=== PATIENT | male | born 1985 | race Caucasian/White ===

== ENCOUNTER 2016-03-28 22:27 | Emergency (ER) | payer BC, OTHER ==
[~2016-03-28 22:27] MED LIST: NO CURRENT MEDS
== END 2016-03-29 00:42 | disposition left against medical advice (07) ==
LOC: ER 22:28
DX: Z53.21 Procedure and treatment not carried out due to patient leaving prior to being seen by health care provider (principal)
CPT/HCPCS: A4606; Z7610

== ENCOUNTER 2021-10-04 10:54 | Emergency (ER) | payer MEDICAID ==
[~2021-10-04] VITALS: Ht 185.4 cm; Wt 117.9 kg
[2021-10-04 11:08] VITALS: BP 161/109
[2021-10-04] MEDS ORDERED: TYL2T PO (11:30)
[2021-10-04] MEDS ORDERED: AMOX875T2 PO (11:30)
--- NOTE | 2021-10-04 11:35 | NUR ---
Patient discharged to home in stable condition. Written and verbal after care instructions given. Patient verbalizes understanding of instruction.
== END 2021-10-04 11:35 | disposition home or self-care (01) ==
LOC: ER 10:59
DX: H66.91 Otitis media, unspecified, right ear (principal); I10 Essential (primary) hypertension; E11.9 Type 2 diabetes mellitus without complications; M10.9 Gout, unspecified; Z98.890 Other specified postprocedural states

== ENCOUNTER 2022-01-03 21:03 | Emergency (ER) | payer MEDICAID ==
[~2022-01-03] VITALS: Ht 180.3 cm; Wt 121.1 kg
[~2022-01-03 21:03] MED LIST changes: +AMOX875T2 PO; +TYL2T PO
[2022-01-03 21:47] VITALS: BP 132/89
[2022-01-03] MEDS ORDERED: CEPH500C2 PO (22:06)
[2022-01-03] MEDS ORDERED: CEPHALEXIN MONOHYDRATE 500 MG CAPSULE PO ONE ×2 (22:10→22:30)
--- NOTE | 2022-01-03 22:13 | NUR ---
Patient discharged to home in stable condition. Written and verbal after care instructions given. Patient verbalizes understanding of instruction.
[2022-01-04] MEDS ORDERED: POLYMYXIN B SULFATE 500,000 UNITS ONE (09:21)
== END 2022-01-03 22:13 | disposition home or self-care (01) ==
LOC: ER 21:16
DX: L03.113 Cellulitis of right upper limb (principal); I10 Essential (primary) hypertension; E11.9 Type 2 diabetes mellitus without complications; Z87.39 Personal history of other diseases of the musculoskeletal system and connective tissue; Z60.2 Problems related to living alone; Z79.899 Other long term (current) drug therapy

== ENCOUNTER 2022-01-08 16:41 | Emergency (ER) | payer MEDICAID ==
[~2022-01-08] VITALS: Ht 188 cm; Wt 122.5 kg
[~2022-01-08 16:41] MED LIST changes: +CEPH500C2 PO
[2022-01-08] MEDS ORDERED: LIDOCAINE 1%-EPI 1:100,000 20 ML VIAL ONE (17:18)
[2022-01-08] MEDS ORDERED: LIDOCAINE 1% INJ 50 ML MDV IJ ONE (17:30)
[2022-01-08 18:12] VITALS: BP 135/74
--- NOTE | 2022-01-08 18:12 | NUR ---
Patient discharged to home in stable condition. Written and verbal after care instructions given. Patient verbalizes understanding of instruction.
== END 2022-01-08 18:12 | disposition home or self-care (01) ==
LOC: ER 16:46
DX: L02.413 Cutaneous abscess of right upper limb (principal); I10 Essential (primary) hypertension; E11.9 Type 2 diabetes mellitus without complications; M10.9 Gout, unspecified; Z98.890 Other specified postprocedural states; Z60.2 Problems related to living alone; Z79.899 Other long term (current) drug therapy
CPT/HCPCS: 10060; 99282; A6403; J3490